=== PATIENT | female | born 2000 | race Caucasian/White ===

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

== ENCOUNTER → 2019-01-10 | Outpatient (CLI) | payer OTHER ==
[2019-01-10 23:42] LABS: Insulin Level 21.2 mIU/mL (3.0-25.0)
== END | disposition home or self-care (01) ==
LOC: LABWHC1 13:32
PROVIDERS: ATTEND Obstetrics & Gynecology
DX: N91.2 Amenorrhea, unspecified (principal); Z13.29 Encounter for screening for other suspected endocrine disorder
CPT/HCPCS: 36415; 82397; 82627; 82670; 82947; 83525; 84270; 84403

== ENCOUNTER → 2020-11-21 | Outpatient (CLI) | payer OTHER ==
--- NOTE | 2020-11-21 16:25 | US ---
EXAMINATION TYPE: US OB >= 14 wk fetus DATE OF EXAM: 11/21/2020 COMPARISON: None CLINICAL HISTORY: Z36 Confirm dates TECHNIQUE: Transabdominal (TA) GESTATIONAL AGE / DATING Physician Established: Not yet established Dates by LMP: LMP unknown Dates by First Scan: No previous this is first scan Dates by Current Scan: (17 weeks/6 days) EDC: 04/25/2021 SURVEY IUP: Single PLACENTA: Anterior PREVIA: No Previa JEFFREY: 11.5 cm Normal CERVICAL LENGTH (transabdominal: norm > 3.0cm): 4.0 cm BIOMETRY PRESENTATION: Breech LIE: Longitudinal BPD: 4.0 cm 18 weeks / 1 days HC: 14.2 cm 17 weeks / 4 days AC: 12.5 cm 18 weeks / 1 days FL: 2.5 cm 17 weeks / 4 days ESTIMATED WEIGHT IN GRAMS: 211 grams ESTIMATED WEIGHT IN LBS/OZ: 0 lbs. 7 oz. HC/AC: 1.14 FL/AC: 20% HEART RATE: 150 bpm RHYTHM: Normal Viable single IUP measuring 17 weeks 6 days with a heart rate of 150bpm and an estimated delivery raine e of 04/25/2021. IMPRESSION: 1. Single intrauterine with an average ultrasound gestational age of 17 weeks and 6 days. F etal heart rate is 150 bpm. Please see biometrics above. Amniotic fluid index is 11.5 cm. Placenta is anterior.
== END | disposition home or self-care (01) ==
LOC: RADUSWWP 12:29
PROVIDERS: ATTEND Obstetrics & Gynecology
DX: O32.1XX0 Maternal care for breech presentation, not applicable or unspecified (principal); Z3A.17 17 weeks gestation of pregnancy
CPT/HCPCS: 76805

== ENCOUNTER 2021-04-12 12:45 | Outpatient (CLI) | payer OTHER ==
[2021-04-12 13:42] VITALS: BP 125/76; PULSE 98; RESP 16; TEMP 97.8
[2021-04-12 21:50] LABS: HSV I IgG Interp POSITIVE (NEGATIVE); HSV II IgG Interp NEGATIVE (NEGATIVE)
--- NOTE | 2021-04-14 08:01 | P.MSEPDOC ---
Presenting Problems - Arrival Data Date of Arrival on Unit: 04/12/21 Time of Arrival on Unit: 12:45 Mode of Transport: Ambulatory - Complaint OB-Reason for Admission/Chief Complaint: NST Comment: Pt arrives for NST r/t polyhydramnios and labs for HSV Medical History - Information : 2 Para: 0 Term: 0 : 0 Abortions: Spontaneous or Elective: 1 Number of Living Children: 0 - Gestational Age Gestational Age by LUCIEN (wks/days): 38 Weeks and 1 Days - History Sexually Transmitted Diseases: HSV Review of Systems - Review of Systems Constitutional: No problems Breast: No problems ENT: No problems Cardiovascular: No problems Respiratory: No problems Gastrointestinal: No problems Genitourinary: No problems Musculoskeletal: No problems Neurological: No problems Skin: No problems Vital Signs - Temperature Temperature: 97.8 F Temperature Source: Oral - Pulse Apical Pulse Rate: 98 Pulse Assessment Method: Pulse Oximetry - Respirations Respiratory Rate: 16 Oxygen Delivery Method: Room Air O2 Sat by Pulse Oximetry: 98 - Blood Pressure Right Arm Sitting Blood Pressure: 125/76 Blood Pressure Mean: 92 Blood Pressure Source: Automatic Cuff Medical Screen Scoring - Assessment - Baby A Baseline FHR: 135 Heart Rate - NICHD Category: Category I (Normal) NST: Reactive Physician Notification - Physician Notified Physician Notified Date: 04/12/21 Physician Notified Time: 13:20 Physician: Leon Espinoza - Notification Comment Comment: Spk c\Dr. Espinoza, advsd pt of Dr. Peace, arrived for NST, reactive NST obtained. Order rec'd to d/c home, follow up as scheduled Thursday. Maternal Triage Index - Maternal Triage Index Presenting for scheduled procedure w/no complaint: Yes - Scheduled/Requesting Priority 5 Scheduled/Requesting Priority 5: Yes Criteria Met for Priority 5: NST and Labs Disposition - Disposition OB Disposition: Discharge to home, Written follow up instructions reviewed Discharge Date: 04/12/21 Discharge Time: 13:26 I agree with the RN Medical Screening Exam: Yes Case reviewed; plan agreed upon as documented in EMR&OBIX.: Yes Diagnosis: RELATED CONDITIONS, UNSPECIFIED, THIRD TRIMESTER (patient presents to labor and delivery for a nonstress test per orders given by Dr. Mack for polyhydramnios and also laboratory testing for HSV. Nonstress tests is category 1. Laboratory evaluation shows evidence of previous oral herpes infection. There is no evidence maternal compromise at this time therefore patient's discharge home follow up with Dr. Mack as instructed.)
== END 2021-04-12 13:26 | disposition home or self-care (01) ==
LOC: FBPOP 12:45
PROVIDERS: ATTEND Obstetrics & Gynecology
DX: O26.93 Pregnancy related conditions, unspecified, third trimester (principal); Z3A.38 38 weeks gestation of pregnancy
CPT/HCPCS: 59025; 86695; 86696; G0463; 99213

== ENCOUNTER 2021-04-23 05:58 | Inpatient (IN) | payer OTHER ==
[2021-04-23] MEDS ORDERED: CARBOPROST TROMETHAMINE 250 MCG/ML 1 ML AMP IM PRN (06:08)
[2021-04-23] MEDS ORDERED: OXYTOCIN 10 UNIT/ML 1 ML VIAL IM PRN (06:08)
[2021-04-23] MEDS ORDERED: METHYLERGONOVINE 0.2 MG/ML 1 ML AMP IM PRN (06:08)
[2021-04-23] MEDS ORDERED: LIDOCAINE 0.5% (PF) 5 MG/ML (50 ML SDV) SQ PRN (06:08)
[2021-04-23] MEDS ORDERED: AMPICILLIN 2,000 MG in SODIUM CHLORIDE 0.9% 100 ML IVPB STA (06:08)
[2021-04-23] MEDS ORDERED: TERBUTALINE 1 MG/ML VIAL SQ PRN (06:08)
[2021-04-23] MEDS ORDERED: OXYTOCIN 30 UNITS/500 ML NS 30 UNIT in SALINE 1 500ML.BAG IV SCH (06:15)
[2021-04-23] MEDS: LACTATED RINGERS 1,000 ML IV SCH ×2 (06:34→11:37)
[2021-04-23 06:49] LABS: Basophils % (A) 0 %; Eosinophils # (A) 0.2 k/uL (0-0.7); Eosinophils % (A) 1 %; HCT 34.6 % (34.0-46.0); HGB 12.2 gm/dL (11.4-16.0); Lymphocytes # (A) 2.1 k/uL (1.0-4.8); Lymphocytes % (A) 15 %; MCHC 35.1 g/dL (31.0-37.0); MCV 85.5 fL (80.0-100.0); Mean Platelet Volume 8.8; Monocytes # (A) 0.5 k/uL (0-1.0); Monocytes % (A) 4 %; Neutrophils # (A) 11.1 k/uL (1.3-7.7); Neutrophils % (A) 79 %; Platelet Count 290 k/uL (150-450); RBC 4.05 m/uL (3.80-5.40); RDW 14.2 % (11.5-15.5); WBC 14.1 k/uL (3.8-10.6)
[2021-04-23] MEDS: AMPICILLIN 1,000 MG in SODIUM CHLORIDE 0.9% 50 ML IVPB SCH ×3 (11:23→18:31)
[2021-04-23] MEDS ORDERED: ZOLPIDEM 5 MG TAB PO PRN (18:33)
[2021-04-23] MEDS ORDERED: BENZOCAINE/MENTHOL SPRAY 1 GM/SPRAY AEROSOL TOPICAL PRN (18:33)
[2021-04-23] MEDS ORDERED: diphenhydrAMINE 25 MG CAP PO PRN (18:33)
[2021-04-23] MEDS ORDERED: diphenhydrAMINE 50 MG/ML 1 ML VIAL IVP PRN ×2 (18:33)
[2021-04-23] MEDS ORDERED: SIMETHICONE 80 MG CHEWABLE PO PRN (18:33)
[2021-04-23] MEDS ORDERED: diphenhydrAMINE 50 MG CAP PO PRN (18:33)
[2021-04-23] MEDS ORDERED: LANOLIN CREAM 5 GM TUBE TOPICAL PRN (18:33)
[2021-04-23] MEDS ORDERED: ACETAMINOPHEN TAB 325 MG TAB PO PRN (18:33)
[2021-04-23] MEDS ORDERED: HYDROCORTISONE 2.5% RECTAL CREAM 30 GM TUBE RECTAL PRN (18:33)
[2021-04-23] MEDS ORDERED: MEASLES-MUMPS-RUBELLA VACC/PF 12,500 UNIT/0.5 ML VIAL SQ ONE (18:33)
--- NOTE | 2021-04-23 18:35 | P.HPOB ---
History of Present Illness H&P Date: 04/23/21 Chief Complaint: Uterine at term: Induction of labor Patient is a 21-year-old at 39 weeks gestation who arrives for induction of labor. Her course was generally unremarkable although she did have some borderline amniotic fluid index is and has been monitored closely through the latter part of the she has done very well. Last ultrasound revealed baby to be in approximately 80 percentile. She is groupie strep positive. Category 1 tracing was noted this morning and artificial rupture membranes was performed with her dilated to approximately 2-3 cm 80% effaced and -2 station. Other pertinent labs include O+ blood type, Rh and it was negative, rubella was immune and hepatitis B surface antigen/RPR and HIV were all negative. She plans to use epidural for analgesia we'll use Pitocin augmentation of labor and expect spontaneous vaginal delivery Past Medical History Past Medical History: No Reported History Additional Past Medical History / Comment(s): D&E History of Any Multi-Drug Resistant Organisms: None Reported Past Surgical History: No Surgical Hx Reported Additional Past Surgical History / Comment(s): D&E Past Anesthesia/Blood Transfusion Reactions: No Reported Reaction Past Psychological History: Depression Smoking Status: Former smoker Past Alcohol Use History: None Reported Past Drug Use History: None Reported - Past Family History Father History Unknown: Yes Medications and Allergies Home Medications Medication Instructions Recorded Confirmed Type Pnv No.95/Ferrous Fum/Folic AC 1 each PO DAILY 04/12/21 04/23/21 History [ Multivitamin Tablet] Allergies Allergy/AdvReac Type Severity Reaction Status Date / Time latex AdvReac Rash/Hives Verified 04/23/21 06:03 Exam Osteopathic Statement: *. No significant issues noted on an osteopathic struct ural exam other than those noted in the History and Physical/Consult. Vital Signs Temp Pulse Resp BP Pulse Ox 04/23/21 06:18 96.7 F L 110 H 18 140/94 98 Intake and Output 04/23/21 04/23/21 04/23/21 06:59 14:59 22:59 Intake Total 11.717 Output Total 200 Balance -188.283 Intake: Intake, IV Titration 11.717 Amount Oxytocin 30 Units/500 ml 11.717 Ns 30 unit In Saline 1 500ml.bag @ Per Protocol IV .Q0M [facility] Rx#:[id number] Output: Urine 200 Straight 200 Other: # Voids 2 Weight 106.594 kg - OBG Physical Exam Breast: both: normal (no masses) Abdomen: bowel sounds normal, no diffuse tenderness, no bruit present, no guarding noted, no hepatomegaly, no splenomegaly, no mass Vulva: both: normal Vagina: normal moisture, no discharge Cervix: no lesion, no discharge Uterus: normal size, normal contour Adnexa: both: normal Anus/Rectum: normal perianal skin, no rectal mass, no hemorrhoids, heme negative Results Result Diagrams: 04/23/21 06:35 Abnormal Lab Results - Last 24 Hours (Table) 04/23/21 Range/Units 06:35 WBC 14.1 H (3.8-10.6) k/uL Neutrophils # 11.1 H (1.3-7.7) k/uL
--- NOTE | 2021-04-23 18:37 | P.PROBDLV ---
Vaginal Delivery Note - . Vaginal Delivery Note: Patient progressed to complete and pushing with spontaneous vaginal delivery of a viable male over a second-degree vaginal laceration with no peritoneal involvement. Baby was delivered from left occiput anterior position with mild asynclitism once baby's head was delivered mouth nares were bulb suctioned and anterior posterior shoulders were easily delivered with gentle downward and upward traction. Once baby was fully delivered a was placed on mother's abdomen where the umbilical cord was clamped cut usual fashion following 30 seconds of ulceration. Nursery personnel was present and assumed care. Placenta was then delivered intact Pitocin was added to the IV. scores are 8 and 9 at one and 5 minutes respectively and the weight is 7 lbs. 15 oz. Second the vaginal laceration was then repaired with 3-0 Vicryl following 1% Xylocaine for analg esia. Both mother and baby are stable following delivery.
[2021-04-23] MEDS: IBUPROFEN 600 MG TAB PO SCH (19:10)
[2021-04-23] MEDS: SENNOSIDES-DOCUSATE SODIUM 1 EACH TAB PO SCH (22:05)
[2021-04-24] MEDS: IBUPROFEN 600 MG TAB PO SCH ×3 (04:23→23:29)
[2021-04-24] MEDS: SENNOSIDES-DOCUSATE SODIUM 1 EACH TAB PO SCH ×2 (08:09→19:30)
--- NOTE | 2021-04-24 09:06 | P.DS ---
Providers Date of admission: 04/23/21 05:58 Expected date of discharge: 04/24/21 Attending physician: Devyn Foster Primary care physician: Stated None Hospital Course: Patient is doing very well post day 1. She is involuting, voiding and tolerating her diet. She is requesting discharge home tonight. Vital signs are stable and afebrile. Heart regular, lungs clear, extremities are without pain. Abdomen soft and uterus is firm. Lochia is reported light. Assessment day 1. Plan discharged home follow up with me in 6 weeks. Prescription for Motrin and a breast pump are provided. All the questions are answered for her prior to discharge and she is stable for discharge at this time. Patient Condition at Discharge: Good Plan - Discharge Summary New Discharge Prescriptions: New Ibuprofen [Motrin] 600 mg PO Q6HR PRN #30 tab PRN Reason: Pain No Action Pnv No.95/Ferrous Fum/Folic AC [ Multivitamin Tablet] 1 each PO DAILY Discharge Medication List Pnv No.95/Ferrous Fum/Folic AC [ Multivitamin Tablet] 1 each PO DAILY 04/12/21 [History] Ibuprofen [Motrin] 600 mg PO Q6HR PRN #30 tab 04/24/21 [Rx] Follow up Appointment(s)/Referral(s): Devyn Foster DO [Doctor of Osteopathic Medicine] - 6 Weeks Activity/Diet/Wound Care/Special Instructions: Heavy lifting, limit stairs and driving, and pelvic rest. If any high temperatures, heavy bleeding, or severe pain call Discharge Disposition: HOME SELF-CARE
[2021-04-24 23:34] VITALS: RESP 16
[2021-04-25 08:56] VITALS: BP 112/77; PULSE 93; TEMP 97.9
[2021-04-25] MEDS: IBUPROFEN 600 MG TAB PO SCH (08:57)
[2021-04-25] MEDS: SENNOSIDES-DOCUSATE SODIUM 1 EACH TAB PO SCH (08:57)
--- NOTE | 2021-04-25 09:30 | P.DS ---
Providers Date of admission: 04/23/21 05:58 Expected date of discharge: 04/25/21 Attending physician: Devyn Foster Primary care physician: Stated None Hospital Course: No changes are noted from yesterday's dictation. She stayed due to the baby not being discharged home. We'll discharge home today with same instructions. Patient Condition at Discharge: Good Plan - Discharge Summary New Discharge Prescriptions: New Ibuprofen [Motrin] 600 mg PO Q6HR PRN #30 tab PRN Reason: Pain No Action Pnv No.95/Ferrous Fum/Folic AC [ Multivitamin Tablet] 1 each PO DAILY Discharge Medication List Pnv No.95/Ferrous Fum/Folic AC [ Multivitamin Tablet] 1 each PO DAILY 04/12/21 [History] Ibuprofen [Motrin] 600 mg PO Q6HR PRN #30 tab 04/24/21 [Rx] Follow up Appointment(s)/Referral(s): Devyn Foster DO [Doctor of Osteopathic Medicine] - 6 Weeks Activity/Diet/Wound Care/Special Instructions: Heavy lifting, limit stairs and driving, and pelvic rest. If any high temperatures, heavy bleeding, or severe pain call Discharge Disposition: HOME SELF-CARE
== END 2021-04-25 15:40 | disposition home or self-care (01) | DRG 807 ==
LOC: 4FBP 05:58
PROVIDERS: ADMIT Obstetrics & Gynecology; ATTEND Obstetrics & Gynecology
PROC: 10E0XZZ Delivery of Products of Conception, External Approach (ICD-10-PCS; principal; 2021-04-23)
PROC: 0KQM0ZZ Repair Perineum Muscle, Open Approach (ICD-10-PCS; 2021-04-23)
PROC: 3E033VJ Introduction of Other Hormone into Peripheral Vein, Percutaneous Approach (ICD-10-PCS; 2021-04-23)
PROC: 10907ZC Drainage of Amniotic Fluid, Therapeutic from Products of Conception, Via Natural or Artificial Opening (ICD-10-PCS; 2021-04-23)
PROC: 4A0HXCZ Measurement of Products of Conception, Cardiac Rate, External Approach (ICD-10-PCS; 2021-04-23)
DX: O99.824 Streptococcus B carrier state complicating childbirth (principal); Z37.0 Single live birth; F32.A Depression, unspecified; O70.1 Second degree perineal laceration during delivery; O32.8XX0 Maternal care for other malpresentation of fetus, not applicable or unspecified; O99.73 Diseases of the skin and subcutaneous tissue complicating the puerperium; L98.8 Other specified disorders of the skin and subcutaneous tissue; O26.893 Other specified pregnancy related conditions, third trimester; Z67.41 Type O blood, Rh negative; O99.344 Other mental disorders complicating childbirth; Z3A.39 39 weeks gestation of pregnancy; Z87.891 Personal history of nicotine dependence; Z91.040 Latex allergy status
CPT/HCPCS: 85025; 86850; 86900; 86901

== ENCOUNTER → 2021-12-16 | Outpatient (CLI) | payer OTHER ==
--- NOTE | 2021-12-16 16:04 | US ---
EXAMINATION TYPE: US OB >= 14 wk fetus DATE OF EXAM: 12/16/2021 COMPARISON: None CLINICAL HISTORY: 21-year-old female Z36.89 ENCOUNTER FOR OTHER SPECIFIED SCR TECHNIQUE: Transabdominal (TA) FINDINGS: GESTATIONAL AGE / DATING Physician Established: (14 weeks/4 days) EDC: 06/12/2022 Dates by LMP: LMP unknown Dates by First Scan: No previous this is first scan Dates by Current Scan: (16 weeks/3 days) EDC: 05/30/2022 SURVEY IUP: Single PLACENTA: Posterior PREVIA: Low Lying. The inferior placental margin is only 1.5 cm from the internal cervical os. JEFFREY: 14.1 cm Normal CERVICAL LENGTH (transabdominal: norm > 3.0cm): 3.9 cm BIOMETRY PRESENTATION: Breech LIE: Transverse with head maternal Right BPD: 3.4 cm 16 weeks / 4 days HC: 12.9 cm 16 weeks / 4 days AC: 9.9 cm 15 weeks / 6 days FL: 2.0 cm 16 weeks / 0 days ESTIMATED WEIGHT IN GRAMS: 143 grams ESTIMATED WEIGHT IN LBS/OZ: 0 lbs. 5 oz. WEIGHT PERCENTAGE BASED ON ESTABLISHED DATES: >97% HC/AC: 1.31 Normal FL/AC: 20.41 HEART RATE: 139 bpm RHYTHM: Normal MATERNAL WALL MEASUREMENT: 6.2 cm from skin to anterior uterine wall (if exam limited due to body hab itus). IMPRESSION: 1. Single live intrauterine with position established gestational age of 14 weeks 4 days. C urrent ultrasound biometry is larger (16 weeks 3 days) placing the at > 97 percentile for w eight. Short interval follow-up recommended to ensure appropriate growth. 2. Low-lying placenta with the inferior placental margin 1.5 cm from the internal cervical os. 3. Complete survey recommended at 18-20 weeks.
== END | disposition home or self-care (01) ==
LOC: RADUSWWP 10:38
PROVIDERS: ATTEND Obstetrics & Gynecology
DX: Z36.89 Encounter for other specified antenatal screening (principal); Z3A.16 16 weeks gestation of pregnancy
CPT/HCPCS: 76805

== ENCOUNTER 2022-05-28 09:54 | Inpatient (IN) | payer OTHER ==
[2022-05-26 14:23] VITALS: BMI 42.5
--- NOTE | 2022-05-27 16:44 | P.HPOB ---
History of Present Illness H&P Date: 05/27/22 Chief Complaint: Primary section for breech This is a 21 y.o. female, 4, para 1, with an estimated date of confinement of 05/30/2021, estimated gestational age of 39-5/7 weeks, who presents for primary section due to breech presentation. She does have irregular contractions and pressure. course has been otherwise uncomplicated. labs: Hepatitis B surface antigen-neg RPR-NR Rubella-immune Blood type-O+ Antibody screen-neg HIV-NR Hemoglobin-12.7 Toxoplasma-neg Random glucose-115 1 hr. GTT-126 GBS-neg OB Hx: . History of 2 miscarriages. 1 vaginal delivery at term. 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 Works at [email or web address]. Review of Systems Constitutional: Denies chills, Denies fever Eyes: denies blurred vision, denies pain Ears, nose, mouth and throat: Denies headache, Denies sore throat Cardiovascular: Denies chest pain, Denies shortness of breath Respiratory: Denies cough Gastrointestinal: Reports abdominal pain (irregular contractions) Genitourinary: Reports pelvic pain, Reports Musculoskeletal: Reports low back pain Integumentary: Denies pruritus, Denies rash Neurological: Denies numbness, Denies weakness Psychiatric: Reports anxiety, Reports depression Past Medical History Past Medical History: No Reported History Additional Past Medical History / Comment(s): migraines,mult pimples and scratches to ernie legs History of Any Multi-Drug Resistant Organisms: None Reported Past Surgical History: No Surgical Hx Reported Additional Past Surgical History / Comment(s): D&E Past Anesthesia/Blood Transfusion Reactions: No Reported Reaction Past Psychological History: Anxiety, Depression Smoking Status: Current some day smoker Past Alcohol Use History: None Reported Past Drug Use History: None Reported - Past Family History Father Family Medical History: Hypertension Mother Family Medical History: Cancer Additional Family Medical History / Comment(s): uterine CA Medications and Allergies Home Medications Medication Instructions Recorded Confirmed Type Pnv No.95/Ferrous Fum/Folic AC 1 each PO DAILY 04/12/21 05/28/22 History [ Multivitamin Tablet] Allergies Allergy/AdvReac Type Severity Reaction Status Date / Time latex AdvReac Rash/Hives Verified 05/28/22 10:17 Exam Osteopathic Statement: *. No significant issues noted on an osteopathic structural exam other than those noted in the History and Physical/Consult. HEENT: within normal limits Heart: regular rate and rhythm Lungs: clear to auscultation bilaterally Abdomen: , non-tender Cervix: 1.5 cm/60%/-2 heart tones: 140's by doppler Extremities: neg. Katie's Results Result Diagrams: 05/28/22 10:30 Assessment and Plan (1) 39 weeks gestation of Current Visit: No Status: Acute Code(s): Z3A.39 - 39 WEEKS GESTATION OF SNOMED Code(s): 43995388 (2) Breech presentation at Current Visit: No Status: Acute Code(s): O32.1XX0 - MATERNAL CARE FOR BREECH PRESENTATION, UNSP SNOMED Code(s): 510710898 Plan: Proceed with primary section. I have discussed the risks, benefits, and alternative therapies for the above- mentioned procedure and for both sedation/anesthesia as well as necessary blood products administration, if indicated, as they pertain to this patient. The patient has indicated her understanding and acceptance of the risks and procedures discussed.
[2022-05-28] MEDS ORDERED: CITRIC ACID-SODIUM CITRATE 15 ML CUP PO ONE (10:17)
[2022-05-28] MEDS ORDERED: LIDOCAINE 1% (10MG/ML) FOR IV START INTRADERMA PRN (10:17)
[2022-05-28] MEDS ORDERED: LACTATED RINGERS 1,000 ML IV ONE (10:17)
[2022-05-28 11:12] LABS: Basophils % (A) 0 %; Eosinophils # (A) 0.1 k/uL (0-0.7); Eosinophils % (A) 1 %; HCT 31.9 % (34.0-46.0); HGB 10.5 gm/dL (11.4-16.0); Hypochromasia Slight; Lymphocytes # (A) 1.7 k/uL (1.0-4.8); Lymphocytes % (A) 17 %; MCH 25.9 pg (25.0-35.0); MCHC 32.7 g/dL (31.0-37.0); MCV 79.2 fL (80.0-100.0); Mean Platelet Volume 9.1; Monocytes # (A) 0.3 k/uL (0-1.0); Monocytes % (A) 3 %; Neutrophils # (A) 7.6 k/uL (1.3-7.7); Neutrophils % (A) 76 %; Platelet Count 261 k/uL (150-450); Poikilocytosis Slight; RBC 4.03 m/uL (3.80-5.40); RDW 15.2 % (11.5-15.5)
[2022-05-28] MEDS ORDERED: DEXAMETHASONE SOD PHOS (MDV) 100 MG/10 ML VIAL ONE (12:11)
[2022-05-28] MEDS ORDERED: MORPHINE SULFATE (PF) 0.3 MG/0.3 ML SYR ONE (12:11)
[2022-05-28] MEDS ORDERED: OXYTOCIN 30 UNITS/500 ML NS BAG IV ONE (12:11)
[2022-05-28] MEDS ORDERED: ONDANSETRON 4 MG/2 ML VIAL ONE (12:11)
[2022-05-28] MEDS ORDERED: KETOROLAC 15 MG/ML 1 ML VIAL ONE (12:11)
--- NOTE | 2022-05-28 12:59 | P.OP ---
Date of Procedure: 05/28/22 Preoperative Diagnosis: 1. Intrauterine at 39-5/7 weeks. 2. Breech presentation. Postoperative Diagnosis: Same Procedure(s) Performed: Primary low transverse section Anesthesia: spinal (Duramorph) Surgeon: Meagan Shah Overseer [employer] Kitchen #1: Leon Espinoza Estimated Blood Loss (ml): 410 Pathology: none sent Condition: stable Disposition: floor Indications for Procedure: This is a 21-year-old female 4 para 1 at 39-5/7 weeks who presented for primary section due to breech presentation. Breech presentation was again confirmed by bedside ultrasound immediately prior to delivery. I have discussed the risks, benefits, and alternative therapies for the above- mentioned procedure and for both sedation/anesthesia as well as necessary blood products administration, if indicated, as they pertain to this patient. The patient has indicated her understanding and acceptance of the risks and procedures discussed. Operative Findings: A viable female infant is noted in the footling breech presentation with scores of 8 at 1 minute and 9 at 5 minutes and infant weight of 8 lbs. 11 oz. Normal uterus tubes and ovaries are noted. Description of Procedure: The patient is taken to the operating room where she is placed in the dorsal supine position with leftward tilt after spinal Duramorph anesthesia is given. She is prepped and draped in the normal sterile fashion. Skin was tested and found to be adequately anesthetized. A Pfannenstiel skin incision was made with a scalpel. A second knife was used to carry the incision down to the underlying layer of fascia. The fascia was nicked in the midline with a scalpel and then extended laterally bilaterally with Benitez scissors. The anterior lip of the fascia was grasped with 2 Bruno clamps and then dissected off the underlying rectus muscle in the midline with Benitez scissors. The inferior aspect of the fascial incision was grasped with 2 Bruno clamps and dissected off the underlying rectus muscle and the midline with Benitez scissors. Next the peritoneum layer was tented up with 2 hemostats and then entered sharply with the scalpel. The incision is extended superiorly and inferiorly with Metzenbaum scissors. Next a DeLee retractor is placed. The vesicouterine peritoneum is entered sharply with Metzenbaum scissors and extended laterally bilaterally with Metzenbaum scissors and then the bladder flap is pushed inferiorly. The lower uterine segment is incised in transverse fashion with the scalpel and then bluntly entered with a hemostat. Clear fluid is noted. The incision was then extended laterally bilaterally with 2 fingers. Next the infant's feet are delivered through the incision followed by each leg in a flexed position followed by the trunk followed by each arm in a flexed position and followed by the head in a flexed position. Nose and mouth are bulb suctioned. Cord is clamped and cut. Infant is taken to warmer by nursing staff. Cord blood was obtained secondary to O+ blood type. Uterine fundus is gently massaged and placenta is delivered manually. Uterus is exteriorized and cleared of all clots and debris. Uterine incision is closed with 0 Vicryl suture in a running locked fashion. A second layer of 0 Vicryl suture is used in a running fashion for hemostasis. Once adequate hemostasis as assured, the vesicouterine peritoneum is reapproximated with 2-0 Vicryl suture in a running fashion. Posterior cul-de-sac is suctioned of all clots and debris. Uterus is returned to the abdomen. Incision is noted to be hemostatic. Peritoneal layer is closed with 0 Vicryl suture in a running fashion. Muscle layer is reapproximated with 0 Vicryl suture in interrupted fashion. Fascia layer is then closed with 0 PDS suture with 2 sutures meeting in the midline and the knots buried in either side and in the midline. The subcutaneous tissue was then closed with 2-0 Vicryl suture. Skin layer was then closed with clarissa. All sponge and needle counts are correct. The patient is taken to recovery room in stable condition.
[2022-05-28] MEDS ORDERED: SIMETHICONE 80 MG CHEWABLE PO PRN (13:12)
[2022-05-28] MEDS ORDERED: NALOXONE 0.4 MG/ML 1 ML VIAL IV PRN (13:12)
[2022-05-28] MEDS ORDERED: diphenhydrAMINE 50 MG/ML 1 ML VIAL IVP PRN ×2 (13:12)
[2022-05-28] MEDS ORDERED: ZOLPIDEM 5 MG TAB PO PRN (13:12)
[2022-05-28] MEDS ORDERED: diphenhydrAMINE 25 MG CAP PO PRN (13:12)
[2022-05-28] MEDS ORDERED: METOCLOPRAMIDE 5 MG/ML 2 ML VIAL IVP PRN (13:12)
[2022-05-28] MEDS ORDERED: diphenhydrAMINE 50 MG CAP PO PRN (13:12)
[2022-05-28] MEDS ORDERED: OXYTOCIN 30 UNITS/500 ML NS 30 UNIT in SALINE 1 500ML.BAG IV SCH (13:12)
[2022-05-28] MEDS ORDERED: ONDANSETRON 4 MG/2 ML VIAL IVP PRN (13:12)
[2022-05-28] MEDS ORDERED: LANOLIN CREAM 5 GM TUBE TOPICAL PRN (13:12)
[2022-05-28] MEDS: ACETAMINOPHEN IV (For NPO) 1,000 MG in EMPTY BAG 1 BAG IVPB SCH ×2 (15:08→20:54)
[2022-05-28] MEDS: LACTATED RINGERS 1,000 ML IV SCH ×2 (15:08→18:01)
[2022-05-28] MEDS: ACETAMINOPHEN TAB 500 MG TAB PO SCH ×2 (15:09→20:54)
[2022-05-28] MEDS: KETOROLAC 15 MG/ML 1 ML VIAL IVP SCH (17:57)
[2022-05-28] MEDS: IBUPROFEN 600 MG TAB PO SCH (17:59)
[2022-05-28] MEDS: SENNOSIDES-DOCUSATE SODIUM 1 EACH TAB PO SCH (20:08)
[2022-05-29] MEDS: IBUPROFEN 600 MG TAB PO SCH ×4 (00:10→22:01)
[2022-05-29] MEDS: LACTATED RINGERS 1,000 ML IV SCH (00:25)
--- NOTE | 2022-05-29 04:52 | P.PNOBGPC ---
Subjective - Subjective Principal diagnosis: Status post primary section postoperative day #1 Interval history: Patient has been ambulating. She is urinating. She has not passed flatus or bowel movement yet. Her pain is fairly well controlled at this time. She is bottle feeding. Patient reports: Reports appetite normal, Reports voiding normally, Reports pain well controlled, Reports ambulating normally [place]: doing well, bottle feeding Objective - Vital Signs Latest vital signs: Vital Signs Temp Pulse Resp BP Pulse Ox 05/29/22 00:00 98.4 F 53 L 18 123/76 96 05/28/22 20:00 98.1 F 60 18 139/78 96 05/28/22 15:02 96.9 F L 63 16 112/68 96 05/28/22 14:32 54 L 16 115/82 98 05/28/22 14:02 62 16 101/68 97 05/28/22 13:47 52 L 16 108/74 95 05/28/22 13:32 61 16 95/60 97 05/28/22 13:17 57 L 16 100/56 96 05/28/22 13:02 96.3 F L 61 16 107/60 94 L 05/28/22 10:43 97.3 F L 90 16 131/80 Intake and Output 05/28/22 05/28/22 05/29/22 14:59 22:59 06:59 Intake Total 1000 Output Total 910 495 0 Balance 90 -495 0 Intake: IV 1000 Output: Urine 500 325 0 Uretheral (Major) 225 Output, Quantitative 410 170 Blood Loss Other: # Voids 0 Weight 108.862 kg - Exam Extremities: Present: normal, other (Multiple excoriated areas on legs and abdomen). Absent: tenderness Abdomen: Present: normal appearance, soft (Faint bowel sounds 4). Absent: distention, tenderness Incision: Present: normal, dry, intact. Absent: erythematous Uterus: Present: normal, firm. Absent: tenderness - Labs Labs: Abnormal Lab Results - Last 24 Hours (Table) 05/28/22 Range/Units 10:30 Hgb 10.5 L (11.4-16.0) gm/dL Hct 31.9 L (34.0-46.0) % MCV 79.2 L (80.0-100.0) fL Assessment and Plan Assessment: Status post primary low transverse section postoperative day #1 (1) 39 weeks gestation of Current Visit: No Status: Acute Code(s): Z3A.39 - 39 WEEKS GESTATION OF SNOMED Code(s): 82997715 (2) Breech presentation at Current Visit: No Status: Acute Code(s): O32.1XX0 - MATERNAL CARE FOR BREECH PRESENTATION, UNSP SNOMED Code(s): 149948918 Plan: Continue with postoperative and care. Will advance diet as tolerated after flatus. Patient is encouraged to ambulate. Dr. Espinoza will cover the rest of today and Dr. Redd will cover this weekend in my absence.
[2022-05-29] MEDS: ACETAMINOPHEN TAB 500 MG TAB PO SCH ×4 (05:44→22:02)
[2022-05-29] MEDS: KETOROLAC 15 MG/ML 1 ML VIAL IVP SCH (06:00)
[2022-05-29 07:08] LABS: Basophils % (A) 0 %; Eosinophils % (A) 0 %; HCT 28.3 % (34.0-46.0); HGB 9.1 gm/dL (11.4-16.0); Hypochromasia Slight; Lymphocytes # (A) 1.9 k/uL (1.0-4.8); Lymphocytes % (A) 17 %; MCH 25.8 pg (25.0-35.0); MCHC 32.3 g/dL (31.0-37.0); MCV 79.8 fL (80.0-100.0); Mean Platelet Volume 9.6; Monocytes # (A) 0.6 k/uL (0-1.0); Monocytes % (A) 5 %; Neutrophils # (A) 8.4 k/uL (1.3-7.7); Neutrophils % (A) 76 %; Platelet Count 252 k/uL (150-450); Poikilocytosis Slight; RBC 3.54 m/uL (3.80-5.40); RDW 15.2 % (11.5-15.5); WBC 11.1 k/uL (3.8-10.6)
--- NOTE | 2022-05-29 08:34 | P.PN ---
Progress Note - Text Progress Note Date: 05/29/22 Postop day 1 from under spinal anesthesia with intrathecal morphine given for postop pain management. Patient is doing well. Pain is well controlled. On visual analog scale 4/10 Mild itching present No nausea or vomiting reported. No Headache or weakness and numbness in the legs. No complications from spinal anesthesia.
[2022-05-29] MEDS ORDERED: PRENATAL VIT-IRON-FOLIC ACID 1 EACH TABLET PO SCH (09:00)
[2022-05-29] MEDS: SENNOSIDES-DOCUSATE SODIUM 1 EACH TAB PO SCH ×2 (09:04→22:01)
[2022-05-30] MEDS: IBUPROFEN 600 MG TAB PO SCH ×3 (00:27→08:44)
[2022-05-30] MEDS: KETOROLAC 15 MG/ML 1 ML VIAL IVP SCH (00:29)
[2022-05-30] MEDS: ACETAMINOPHEN TAB 500 MG TAB PO SCH (03:54)
[2022-05-30] MEDS: SENNOSIDES-DOCUSATE SODIUM 1 EACH TAB PO SCH (08:46)
[2022-05-30 10:10] VITALS: BP 131/65; PULSE 90; RESP 16; TEMP 97.8
--- NOTE | 2022-05-30 18:30 | P.DS ---
Providers Date of admission: 05/28/22 09:54 Expected date of discharge: 05/30/22 Attending physician: Meagan Shah Primary care physician: Stated None - Discharge Diagnosis(es) (1) Status post primary low transverse section Status: Acute Hospital Course: Patient presented for a primary low transverse due to breech presentation. She underwent this procedure without complication. She denies nausea, vomiting, chest pain, shortness of breath or calf pain. Patient will be discharged home postoperative day #2 in stable condition to follow-up with Dr. Shah in one week. Patient Condition at Discharge: Stable Plan - Discharge Summary Discharge Rx Participant: No New Discharge Prescriptions: No Action Pnv No.95/Ferrous Fum/Folic AC [ Multivitamin Tablet] 1 each PO DAILY Discharge Medication List Pnv No.95/Ferrous Fum/Folic AC [ Multivitamin Tablet] 1 each PO DAILY 04/12/21 [History] Follow up Appointment(s)/Referral(s): Meagan Shah DO [Doctor of Osteopathic Medicine] - 07/07/22 11:30 am (Post Op Appointment 06-06-22 @ 1:30) Patient Instructions/Handouts: (DC) Discharge Disposition: HOME SELF-CARE
== END 2022-05-30 15:20 | disposition home or self-care (01) | DRG 788 ==
LOC: 4FBP 09:54
PROVIDERS: ADMIT Obstetrics & Gynecology; ATTEND Obstetrics & Gynecology
PROC: 10D00Z1 Extraction of Products of Conception, Low, Open Approach (ICD-10-PCS; principal; 2022-05-28 12:00)
DX: O32.8XX0 Maternal care for other malpresentation of fetus, not applicable or unspecified (principal); F17.200 Nicotine dependence, unspecified, uncomplicated; O99.334 Smoking (tobacco) complicating childbirth; Z37.0 Single live birth; Z3A.39 39 weeks gestation of pregnancy
CPT/HCPCS: 85025; 86850; 86900; 86901

== ENCOUNTER 2023-02-20 11:51 | Emergency (ER) | payer OTHER ==
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
--- NOTE | 2023-02-20 13:08 | XR ---
EXAMINATION TYPE: XR shoulder complete RT DATE OF EXAM: 02/20/2023 COMPARISON: NONE HISTORY: Pain TECHNIQUE: Three views are submitted. FINDINGS: The osseous structures are intact. There is no acute fracture or dislocation. The AC joint is maint ained. IMPRESSION: 1. No acute process.
--- NOTE | 2023-02-20 13:11 | XR ---
EXAMINATION TYPE: XR elbow complete RT DATE OF EXAM: 02/20/2023 COMPARISON: NONE HISTORY: Pain FINDINGS: Three views of the elbow demonstrate no pathologic joint effusion. The osseous structures are intact . There is no acute fracture or dislocation. IMPRESSION: 1. No acute fracture or dislocation. If symptoms persist follow-up study in 7 to 10 days could be ob tained.
--- NOTE | 2023-02-20 13:19 | XR ---
EXAMINATION TYPE: XR wrist complete RT DATE OF EXAM: 02/20/2023 COMPARISON: NONE HISTORY: Pain TECHNIQUE: Four views submitted. FINDINGS: The osseous structures are intact. The joint spaces are preserved and there is no acute fracture or dislocation. IMPRESSION: 1. No definite acute fracture or dislocation if symptoms persist, follow-up study in 7 to 10 days wo uld be suggested
[2023-02-20 14:31] VITALS: BP 104/70; PULSE 80; RESP 16; TEMP 97.6
== END 2023-02-20 14:30 | disposition home or self-care (01) ==
LOC: EC 11:51
DX: M25.511 Pain in right shoulder (principal); M25.531 Pain in right wrist; F41.9 Anxiety disorder, unspecified; F32.A Depression, unspecified; F17.200 Nicotine dependence, unspecified, uncomplicated; Z91.040 Latex allergy status; Z79.899 Other long term (current) drug therapy
CPT/HCPCS: 99283

== ENCOUNTER 2024-02-27 20:45 | Emergency (ER) | payer SELFPAY ==
[2024-02-27 20:56] VITALS: TEMP 97.9
--- NOTE | 2024-02-27 21:15 | ED ---
General Adult HPI - General Chief complaint: Recheck/Abnormal Lab/Rx Stated complaint: preg test Time Seen by Provider: 02/27/24 21:05 Source: patient, family, RN notes reviewed Mode of arrival: ambulatory - History of Present Illness Initial comments: 23-year-old female presenting for test. States her last period was mid December. She had mild vaginal spotting 2 days ago, however has not had any vaginal bleeding since. Denies any abdominal pain or pelvic cramping. She does have a copper IUD that was placed 2 years ago. She states she had an at home test 3 weeks ago, however has had multiple negative tests since. Reports she has had regular monthly periods since IUD insertion. - Related Data Home Medications Medication Instructions Recorded Confirmed Pnv No.95/Ferrous Fum/Folic AC 1 each PO DAILY 04/12/21 05/28/22 [ Multivitamin Tablet] Allergies Allergy/AdvReac Type Severity Reaction Status Date / Time latex AdvReac Rash/Hives Verified 02/27/24 20:56 Review of Systems ROS Statement: Those systems with pertinent positive or pertinent negative responses have been documented in the HPI. ROS Other: All systems not noted in ROS Statement are negative. Past Medical History Past Medical History: No Reported History Additional Past Medical History / Comment(s): migraines,mult pimples and scratches to ernie legs History of Any Multi-Drug Resistant Organisms: None Reported Past Surgical History: No Surgical Hx Reported Additional Past Surgical History / Comment(s): D&E Past Anesthesia/Blood Transfusion Reactions: No Reported Reaction Past Psychological History: Anxiety, Depression Smoking Status: Current some day smoker, Vaper Past Alcohol Use History: Occasional Past Drug Use History: None Reported - Past Family History Father History Unknown: Yes Family Medical History: Hypertension Mother Family Medical History: Cancer Additional Family Medical History / Comment(s): uterine CA General Exam General appearance: alert, in no apparent distress Head exam: Present: atraumatic, normocephalic, normal inspection GI/Abdominal exam: Present: soft, normal bowel sounds. Absent: distended, tenderness, guarding, rebound, rigid Neurological exam: Present: alert, oriented X3 Psychiatric exam: Present: normal affect, normal mood Skin exam: Present: warm, dry, intact, normal color. Absent: rash Course Vital Signs 02/27/24 20:52 Temperature 97.9 F Pulse Rate 108 H Respiratory 18 Rate Blood Pressure 114/71 O2 Sat by Pulse 99 Oximetry Medical Decision Making - Medical Decision Making Was pt. sent in by a medical professional or institution (, [facility], [employer], urgent care, hospital, or [facility]...) When possible be specific @ -No Did you speak to anyone other than the patient for history (EMS, parent, family, police, friend...)? What history was obtained from this source @ -No Did you review nursing and triage notes (agree or disagree)? Why? @ -I reviewed and agree with nursing and triage notes Were old charts reviewed (outside hosp., previous admission, EMS record, old EKG, old radiological studies, urgent care reports/EKG's, [facility] records)? Report findings @ -No old charts were reviewed Differential Diagnosis (chest pain, altered mental status, abdominal pain women, abdominal pain men, vaginal bleeding, weakness, fever, dyspnea, syncope, headache, dizziness, GI bleed, back pain, seizure, CVA, palpatations, mental health, musculoskeletal)? @ -Differential Vaginal Bleeding: Spontaneous , threatened , molar , ectopic , bloody show, incompetent cervix, abruptioplacenta, placenta previa, uterine rupture, dysfunctional uterine bleeding, hemorrhage, uterine fibroids, this is not meant to be an all-inclusive list. EKG interpreted by me (3pts min.). @ -None X-rays interpreted by me (1pt min.). @ -None done CT interpreted by me (1pt min.). @ -None done U/S interpreted by me (1pt. min.). @ -None done What testing was considered but not performed or refused? (CT, X-rays, U/S, labs)? Why? @ -None What meds were considered but not given or refused? Why? @ -None Did you discuss the management of the patient with other professionals (professionals i.e. , [facility], [employer], lab, RT, psych nurse, psych social worker, public health informatician, teacher, motorcycle police officer, caseworker intake)? Give summary @ -No Was smoking cessation discussed for >3mins.? @ -No Was critical care preformed (if so, how long)? @ -No Were there social determinants of health that impacted care today? How? (Homelessness, low income, unemployed, alcoholism, drug addiction, transportation, low edu. Level, literacy, decrease access to med. care, [facility], rehab)? @ -No Was there de-escalation of care discussed even if they declined (Discuss DNR or withdrawal of care, Hospice)? DNR status @ -No What co-morbidities impacted this encounter? (DM, HTN, Smoking, COPD, CAD, Cancer, CVA, ARF, Chemo, Hep., AIDS, mental health diagnosis, sleep apnea, morbid obesity)? @ -None Was patient admitted / discharged? Hospital course, mention meds given and route, prescriptions, significant lab abnormalities, going to OR and other pertinent info. @ -Discharge. This is a 23-year-old female presenting for test. Patient has a copper IUD that was inserted 2 years ago, however reports she has not had a regular period in almost 2 months, but has had intermittent vaginal spotting. Currently asymptomatic. Urine test negative. Patient updated on results. Advised to follow-up with gynecology within the week. Return precautions discussed and patient is agreeable to plan. Case was discussed with my ED attending Dr. Hinton. Patient discharged in stable condition. Undiagnosed new problem with uncertain prognosis? @ -No Drug Therapy requiring intensive monitoring for toxicity (Heparin, Nitro, Insulin, Cardizem)? @ -No Were any procedures done? @ -No Diagnosis/symptom? @ -Negative test Acute, or Chronic, or Acute on Chronic? @ -Acute Uncomplicated (without systemic symptoms) or Complicated (systemic symptoms)? @ -Uncomplicated Side effects of treatment? @ -No Exacerbation, Progression, or Severe Exacerbation? @ -No Poses a threat to life or bodily function? How? (Chest pain, [place], [place], pneumonia, PE, COPD, DKA, ARF, appy, cholecystitis, CVA, Diverticulitis, Homicidal, Suicidal, threat to staff... and all critical care pts) @ -No - Lab Data Lab Results 02/27/24 Range/Units 21:12 Urine HCG, Qual Not Detected (Not Detectd) Disposition Clinical Impression: test negative Disposition: HOME SELF-CARE Condition: Stable Additional Instructions: Follow up with gynecology as discussed. Please return to the Emergency Department if symptoms worsen or any other concerns. Is patient prescribed a controlled substance at d/c from ED?: No Referrals: Jony Garza DO [STAFF PHYSICIAN] - 1-2 days Onel Baker MD [STAFF PHYSICIAN] - 1-2 days Time of Disposition: 22:03
[2024-02-27 22:38] VITALS: BP 127/84; PULSE 91; RESP 16
== END 2024-02-27 22:40 | disposition home or self-care (01) ==
LOC: EC 20:45
CPT/HCPCS: 81025; 99282